=== PATIENT | male | born 1975 | race African-American/Black ===

== ENCOUNTER → 2019-10-05 | Outpatient (CLI) | payer SELFPAY ==
[~2019-10-05] MED LIST: METOCLOPRAM5 MG/5 ML PO; OMEPRAZOLE40 MG; PROBIOTIC & AC1 EACH
== END ==
LOC: RAD 05:00 → EDSTATUS 10-10 11:30
PROVIDERS: ATTEND Internal Medicine Gastroenterology
DX: Z01.818 Encounter for other preprocedural examination (principal); R13.10 Dysphagia, unspecified; Z53.8 Procedure and treatment not carried out for other reasons
CPT/HCPCS: 93005